=== PATIENT | male | born 1950 | race Caucasian/White ===

== ENCOUNTER 2017-02-14 14:11 | Emergency (ER) | payer OTHER ==
[~2017-02-14] VITALS: Ht 170.2 cm; Wt 93.4 kg
--- NOTE | ~2017-02-14 | CR93 ---
[facility]. [facility] A Service [facility] RADIOLOGY TEXT RESULTS PATIENT: LO VAUGHN LOCATION: SED : 50 UNIT #: [id number] AGE: [address]: ALEXANDER ORTIZ SEX: M ORDER DR: [id number] [place] [id number] E MR#: [id number] Acc #: [id number] NAME: LO VAUGHN : 1950 SEX: M STUDY DATE/TIME: 02/14/2017 15:25 UNIT: SED ROOM: STUDY DESCRIPTION: CR Elbow Min 3 Views Lt Attending Physician: Alexander Ortiz Ordering Physician: Alexander Ortiz Primary Care Physician: Primary Care Physician No MEDICAL IMAGING REPORT This report is preliminary unless electronic signature is present. EXAM Left elbow, 02/14/2017 HISTORY 66-year-old male with left elbow pain for a few days. COMPARISON None FINDINGS Three views of the left elbow demonstrate no acute fracture or dislocation. No joint effusion. No visible loose intraarticular bodies. Postsurgical changes of the radius and ulna are partially imaged. Mild posterior soft tissue swelling. IMPRESSION 1. No evidence of acute fracture or dislocation. No visible loose intraarticular bodies. 2. Mild posterior soft tissue swelling. 3. Partially imaged postoperative changes from ORIF of the radius and ulna. Dictated by... Albin Mosqueda M.D. THIS IS AN ELECTRONICALLY VERIFIED REPORT Albin Mosqueda M.D. at 02/16/2017 10:48 AM EVER/lazara TD: 02/15/2017 16:41 JOB #: [id number] [facility]. [facility] A Service [facility] RADIOLOGY TEXT RESULTS PATIENT: LO VAUGHN LOCATION: SED : 50 UNIT #: [id number] AGE: [address]: ALEXANDER ORTIZ SEX: M ORDER DR: MEDICAL IMAGING REPORT Page 1 of 1
[~2017-02-14 14:11] MED LIST: AMITRYPTYLINE PO; ASPIRIN PO; BP MED PO; IBUPROFEN PO; LORTAB 7.5-5001 TAB PO; ZOCOR PO
== END 2017-02-14 17:07 | disposition home or self-care (01) ==
LOC: SED 14:11
DX: M70.22 Olecranon bursitis, left elbow (principal); I11.9 Hypertensive heart disease without heart failure; I51.9 Heart disease, unspecified; Z79.899 Other long term (current) drug therapy; X58.XXXA Exposure to other specified factors, initial encounter; Y92.009 Unspecified place in unspecified non-institutional (private) residence as the place of occurrence of the external cause
CPT/HCPCS: 29260; 73080; 99283